=== PATIENT | female | born 2000 | race Two or more races ===

== ENCOUNTER 2021-04-18 15:39 | Emergency (ER) | payer SELFPAY ==
[~2021-04-18] VITALS: Ht 167.6 cm; Wt 53.5 kg
[2021-04-18 15:49] VITALS: BP 96/65
== END 2021-04-18 19:51 | disposition left against medical advice (07) ==
LOC: ER 15:39
DX: Z53.21 Procedure and treatment not carried out due to patient leaving prior to being seen by health care provider